=== PATIENT | male | born 1950 | race Caucasian/White ===

== ENCOUNTER 2016-09-21 14:31 | Emergency (ER) | payer SELFPAY ==
[2016-09-21 14:58] VITALS: BP 132/76
[2016-09-21] MEDS ORDERED: Lidocaine 2% 10 ML* VIAL INJ ONE (15:19)
--- NOTE | 2016-09-21 15:19 | UC ---
Laceration HPI - HPI Summary HPI Summary: complaint of laceration on left index finger occured at 14:15 today at work thinks he has had a tetanus in the last 10 years - History Of Current Complaint Chief Complaint: UCUpperExtremity Stated Complaint: WC-LFT HAND FINGER LAC Time Seen by Provider: 09/21/16 15:11 Hx Obtained From: Patient Laceration Location: Finger - Allergies/Home Medications Allergies/Adverse Reactions: Allergies Allergy/AdvReac Type Severity Reaction Status Date / Time Penicillins Allergy Intermediate Hives Verified 09/21/16 14:49 Home Medications: Home Medications Olmesartan Medoxomil [Benicar] 20 mg PO DAILY 09/21/16 [History Confirmed ] PMH/Surg Hx/FS Hx/Imm Hx Previously Healthy: Yes Endocrine History Of: Denies: Diabetes Cardiovascular History Of: Reports: Hypertension Denies: Cardiac Disorders, Pacemaker/ICD Respiratory History Of: Reports: Asthma - Surgical History Surgical History: Yes Surgery Procedure, Year, and Place: Rt KNEE- TORN MENISCUS,TESTICULAR REPLACED W / ARTIFICIAL - 1980s;. testicular removal. bronchial thermoplasty - Family History Known Family History: Positive: Hypertension Negative: Cardiac Disease, Diabetes - Social History Occupation: Employed Part-time Lives: With Family Alcohol Use: None Substance Use Type: None Smoking Status (MU): Never Smoked Tobacco - Immunization History Most Recent Influenza Vaccination: 2016 Most Recent Tetanus Shot: Unknown Most Recent Pneumonia Vaccination: NONE Review of Systems Constitutional: Negative Skin: Other - laceration left index finger Eyes: Negative ENT: Negative Respiratory: Negative Cardiovascular: Negative Gastrointestinal: Negative Genitourinary: Negative Motor: Negative Neurovascular: Negative Musculoskeletal: Negative Neurological: Negative Psychological: Negative All Other Systems Reviewed And Are Negative: Yes Physical Exam Triage Information Reviewed: Yes Appearance: No Pain Distress, Well-Nourished Vital Signs: Initial Vital Signs Temp 98.4 F 09/21/16 14:51 Pulse 66 09/21/16 14:51 Resp 18 09/21/16 14:51 BP 132/76 09/21/16 14:51 Pulse Ox 99 09/21/16 14:51 Vital Signs Reviewed: Yes Eyes: Positive: Conjunctiva Clear ENT: Positive: Pharynx normal, TMs normal Neck: Positive: No Lymphadenopathy Respiratory: Positive: Lungs clear, Normal breath sounds, No respiratory distress, No accessory muscle use Cardiovascular: Positive: RRR, No Murmur, Pulses Normal Musculoskeletal: Positive: No Edema Neurological: Positive: Alert Psychological Exam: Normal Skin: Positive: Other - left index finger with 1cm laceration-distal phalanx full ROM of 2nd finger Laceration Repair - Laceration Repair 1 Description: Linear Laceration Size After Repair: Length (cm) - 2, Width (mm) - 3, Depth (mm) - 4 Modified For Repair: No Type Injection: Local Anesthesia Used: 2.0% Lido Cleansing Completed Via Routine Prep: Yes Irrigation With Pressure Irrigation Device: Yes Closure Material: Sutures Closure Method: Single Layer Suture Of: Skin, SQ Suture Type: Nylon - 4 sutures Laceration Course/Dx - Course/Dx Course Of Treatment: last tetanus immunization 2010 - Differential Dx - Laceration/Wound Differental Diagnoses: Laceration Provider Diagnoses: simple laceration. left index finger Discharge - Discharge Plan Condition: Stable Disposition: HOME Patient Education Materials: Finger Laceration (ED) Referrals: Kellee Wild MD [Primary Care Provider] - Additional Instructions: LACERATION What is a Laceration? Laceration is the medical name for a cut. Lacerations may be large or small. Some lacerations need stitches (also called sutures) to close them so they will heal well. Stitches usually need to be placed within 6 hours of injury. There are times when a wound may be determined to be too old for stitches. Stitches are removed when the wound is strong enough to stay closed, which is usually in 7 to 10 days, depending on where the wound or cut is located. Some stitches dissolve by themselves and do not need to be removed. If you have been given a numbing medicine, there will be some pain when it wears off. The pain from the wound should begin to decrease within one day. Treatment Recommendations: Keep the wound clean and dry for at least the next two (2) days. Keep the dressing clean if at all possible. If you must work in surroundings that will dirty the wound or dressing, wear a protective covering such as a glove. If the wound does get dirty, clean it as soon as you can with mild soap and water using a patting action. Do not rub or scrub vigorously. Then pat it dry completely. If a dressing was placed on the wound, you should put a clean one on at least daily and whenever you clean the wound. You can apply antibiotic ointment such as Bacitracin ointment to the wound each time you change the dressing. Avoid using the injured part as much as possible. If the wound is near a joint , try not to bend the joint too much. Elevate the injured part above your heart whenever possible to relieve throbbing. If you had stitches put in, you should see your healthcare provider in 1 to 2 days to have the wound checked for any signs or symptoms of infection. Some stitches will dissolve by themselves. Others will need to be removed. Make an appointment with your healthcare provider to have the stitches removed on the date instructed. An antibiotic medicine may be prescribed. The medicine should be taken until it is completely gone, even if you are feeling better. If you stop taking the medicine early, the infection may not be completely gone, and the medicine may not work the next time. Call Your Doctor or Return Here IF: Your wound becomes red, warm, swollen or more painful. There are red streaks coming from the wound. You develop a fever or shaking chills. Pus or bad smelling fluid comes out of the wound. You have any other symptoms that worry you. Your blood pressure is pre-hypertensive reading. Please contact your primary care provider within 1 day -4 weeks for further evaluation.
[2016-09-21] MEDS ORDERED: Tetan/Diph/Pertus SYR(Tdap)* 0.5 ML SYR(BOOSTRIX) use SYR IM ONE (15:26)
== END 2016-09-21 16:03 | disposition home or self-care (01) ==
LOC: UCCORT 14:31
DX: S61.211A Laceration without foreign body of left index finger without damage to nail, initial encounter (principal); X58.XXXA Exposure to other specified factors, initial encounter; Y93.9 Activity, unspecified; Y92.9 Unspecified place or not applicable; I10 Essential (primary) hypertension; J45.909 Unspecified asthma, uncomplicated; Z88.0 Allergy status to penicillin
CPT/HCPCS: 12001; 99211; G0463; J2001

== ENCOUNTER 2017-03-07 18:41 | Emergency (ER) | payer BC ==
[2017-03-07 19:08] VITALS: BP 139/82
--- NOTE | 2017-03-07 19:18 | UC ---
Cardiac HPI - HPI Summary HPI Summary: 66 YEAR OLD MALE PRESENTS WITH CHEST TIGHTNESS AND PAIN. - History of Current Complaint Chief Complaint: UCChestPain Stated Complaint: CHEST TIGHTNESS/ASTHMATIC Time Seen by Provider: 03/07/17 19:17 Hx Obtained From: Patient Onset/Duration: Sudden Onset Initial Severity: Moderate Current Severity: Moderate Chest Pain Location: Left Anterior - Allergy/Home Medications Allergies/Adverse Reactions: Allergies Allergy/AdvReac Type Severity Reaction Status Date / Time Penicillins Allergy Intermediate Hives Verified 03/07/17 19:08 Home Medications: Home Medications Aspirin TAB* [Aspirin 325 MG TAB*] 650 mg PO DAILY PRN 03/07/17 [History Confirmed 03/07/17] Fexofenadine HCl [Allergy Relief 24Hr] 180 mg PO DAILY 03/07/17 [History Confirmed 03/07/17] Tadalafil [Cialis] 10 mg PO DAILY PRN 03/07/17 [History Confirmed 03/07/17] diPHENhydraMINE 2% CREAM (NF) [Banophen 2% CREAM (NF)] 1 applic TOPICAL DAILY PRN 03/07/17 [History Confirmed 03/07/17] PMH/Surg Hx/FS Hx/Imm Hx Previously Healthy: Yes - Surgical History Surgical History: Yes Surgery Procedure, Year, and Place: Rt KNEE- TORN MENISCUS,TESTICULAR REPLACED W / ARTIFICIAL - ;. testicular removal. bronchial thermoplasty - Family History Known Family History: Positive: Hypertension Negative: Cardiac Disease, Diabetes - Social History Alcohol Use: Rare Substance Use Type: None Smoking Status (MU): Never Smoked Tobacco - Immunization History Most Recent Influenza Vaccination: 2016 Most Recent Tetanus Shot: Unknown Most Recent Pneumonia Vaccination: NONE Review of Systems Constitutional: Negative Skin: Negative Eyes: Negative ENT: Negative Respiratory: Negative Cardiovascular: Chest Pain Gastrointestinal: Negative Genitourinary: Negative Motor: Negative Neurovascular: Negative Musculoskeletal: Other: - LEFT SIDED CHEST PAIN Neurological: Negative Psychological: Negative All Other Systems Reviewed And Are Negative: Yes Physical Exam Triage Information Reviewed: Yes Vital Signs: Initial Vital Signs Temp 36.8 C 03/07/17 18:51 Pulse 84 03/07/17 18:51 Resp 12 03/07/17 18:51 BP 139/82 03/07/17 18:51 Pulse Ox 100 03/07/17 18:51 Eye Exam: Normal ENT Exam: Normal Dental Exam: Normal Neck exam: Normal Neck: Positive: 1 Respiratory Exam: Normal Cardiovascular Exam: Normal Abdominal Exam: Normal Musculoskeletal Exam: Normal Neurological Exam: Normal Psychological Exam: Normal Skin Exam: Normal - Clinical Impression Provider Diagnoses: LEFT SIDED CHEST PAIN. CHEST TIGHTNESS Discharge - Discharge Plan Condition: Stable Disposition: HOME Patient Education Materials: Chest Pain (ED) Referrals: Kellee Wild MD [Primary Care Provider] - Additional Instructions: PATIENT SUGGESTED TO GO TO ER FOR CHEST TIGHTNESS.
[2017-03-07] MEDS: Aspirin Low Dose CHEW TAB* 81 MG PO ONE (19:26)
== END 2017-03-07 19:25 | disposition home or self-care (01) ==
LOC: UCCORT 18:41
DX: R07.89 Other chest pain (principal); Z88.0 Allergy status to penicillin
CPT/HCPCS: 93005; 99211; G0463

== ENCOUNTER 2017-11-27 15:31 | Emergency (ER) | payer MEDICARE, BC ==
[2017-11-27 16:04] VITALS: BP 126/68
--- NOTE | 2017-11-27 16:21 | UC ---
Hand/Wrist HPI - HPI Summary HPI Summary: Patient has a laceration to the palmar surface of his left fourth finger near his DIP joint. Patient got finger caught on a piece of metal approximately 2 hours prior to arrival. Currently no active bleeding neuro motor and circulation intact wound approximates well. Tetanus is up-to-date was updated in the last year - History Of Current Complaint Chief Complaint: UCLaceration Stated Complaint: LEFT HAND RING FINGER INJURY Time Seen by Provider: 11/27/17 15:38 Hx Obtained From: Patient ?: No Mechanism Of Injury: injury Onset/Duration: Sudden Onset Pain Intensity: 3 Pain Scale Used: 0-10 Numeric Aggravating Factor(s): Movement Alleviating Factor(s): Nothing Associated Signs And Symptoms: Positive: Negative Related History: Dominant Hand Right - Allergies/Home Medications Allergies/Adverse Reactions: Allergies Allergy/AdvReac Type Severity Reaction Status Date / Time Penicillins Allergy Unknown Hives Verified 11/27/17 15:50 PMH/Surg Hx/FS Hx/Imm Hx Endocrine History: Dyslipidemia Cardiovascular History: Hypertension Respiratory History: Asthma GI/ History: Gastroesophageal Reflux - Surgical History Surgical History: Yes Surgery Procedure, Year, and Place: Rt KNEE- TORN MENISCUS,TESTICULAR REPLACED W / ARTIFICIAL - ;. testicular removal. bronchial thermoplasty. LEFT THUMB SURGERY - Family History Known Family History: Positive: Hypertension Negative: Cardiac Disease, Diabetes - Social History Occupation: Retired Lives: With Family Alcohol Use: Rare Substance Use Type: None Smoking Status (MU): Never Smoked Tobacco - Immunization History Most Recent Influenza Vaccination: 2016 Most Recent Tetanus Shot: Unknown Most Recent Pneumonia Vaccination: NONE Review of Systems Constitutional: Negative Skin: Other - v shaped laceration left 4th finger tineo surface Eyes: Negative ENT: Negative Respiratory: Negative Cardiovascular: Negative Gastrointestinal: Negative Genitourinary: Negative Motor: Negative Neurovascular: Negative Musculoskeletal: Negative Neurological: Negative Psychological: Negative Is Patient Immunocompromised?: No All Other Systems Reviewed And Are Negative: Yes Physical Exam Triage Information Reviewed: Yes Appearance: Well-Appearing, No Pain Distress, Well-Nourished Vital Signs: Initial Vital Signs Temp 98.2 F 11/27/17 15:56 Pulse 81 11/27/17 15:56 Resp 18 11/27/17 15:56 BP 126/68 11/27/17 15:56 Pulse Ox 97 11/27/17 15:56 Vital Signs Reviewed: Yes Eye Exam: Normal Eyes: Positive: Conjunctiva Clear - Gentleman ENT Exam: Normal ENT: Positive: Normal ENT inspection - Heart, Hearing grossly normal. Negative : Trismus, Muffled voice, Hoarse voice, Dental tenderness Neck exam: Normal Neck: Positive: Supple, Nontender Respiratory Exam: Normal Respiratory: Positive: Chest non-tender, No respiratory distress, No accessory muscle use Cardiovascular Exam: Normal Cardiovascular: Positive: RRR, Pulses Normal, Brisk Capillary Refill Musculoskeletal Exam: Normal Musculoskeletal: Positive: Strength Intact, ROM Intact, No Edema Neurological Exam: Normal Neurological: Positive: Alert, Muscle Tone Normal Psychological Exam: Normal Skin: Positive: Other - superficial v shaped laceration to left fourth finger Procedures - Laceration/Wound Repair 1 Location: Other - left ring finger Description: Linear - v shaped Length, Depth and Shape: 1 cm total v shaped Betadine Prep?: No Irrigated w/ Saline (ccs): 250 Laceration/Wound Explored: clean, no foreign body removed Closure: SteriStrips Layer Closure?: No Sterile Dressing Applied?: No Re-Evaluation - Re-Evaluation First Eval Change: Improved - wound irrigated and explored for fb. none observed---steri strips applied, excellent wound approximation, no bleeding Hand/Wrist Course/Dx - Course Course Of Treatment: steri strip care follow with pcp prn - Differential Dx/Diagnosis Provider Diagnoses: left 4th finger laceration with steri repair Discharge - Sign-Out/Discharge Documenting (check all that apply): Discharge/Admit/Transfer - Discharge Plan Condition: Stable Disposition: HOME Patient Education Materials: Laceration (ED), Steristrips (ED) Referrals: Kellee Wild MD [Primary Care Provider] - If Needed - Billing Disposition and Condition Condition: STABLE Disposition: Home
--- NOTE | 2017-11-27 16:35 | RAD ---
Indication: Evaluate for foreign body. 3 views of the left ring finger demonstrates no evidence of radiopaque foreign body. No fracture is noted. IMPRESSION: No radiopaque foreign body is noted.
== END 2017-11-27 16:53 | disposition home or self-care (01) ==
LOC: UCCORT 15:31
DX: S61.215A Laceration without foreign body of left ring finger without damage to nail, initial encounter (principal); Z88.0 Allergy status to penicillin; W23.0XXA Caught, crushed, jammed, or pinched between moving objects, initial encounter; Y93.9 Activity, unspecified; Y92.9 Unspecified place or not applicable
CPT/HCPCS: 12001; 73140; 99211; G0463